=== PATIENT | female | born 1955 | race Caucasian/White ===

== ENCOUNTER 2016-11-21 23:03 | Observation (INO) | payer BC ==
[~2016-11-21] VITALS: Ht 157.5 cm; Wt 92.6 kg
[~2016-11-21 23:03] MED LIST: ACTONEL 35MG TA35 MG PO; ACTONEL150 MG PO; AMOXICILLIN 8751 TAB PO; BISOPROLOL10 MG PO; BONIVA150 MG PO; CEPHALEXIN500 M1 PO; CIPRO 500MG TA500 MG PO; DULCOLAX TAB5 MG PO; FLOMAX 0.40.4 MG/CAP PO; MAALOX EXTRA S150 ML PO; NASONEX SPRAY; NORCO 325 MG-51 TAB PO; PERCOCET 5/321 UDTAB PO; PRIL40 PO; TYLENOL 325MG325 MG PO; ZEBETA 5MG5 MG PO; ZOFRAN 4MG T4 MG/TAB PO
[2016-11-21 23:32] LABS: BASO # 0.1 (0.0-0.2); BASO % 0.6 % (0.0-2.0); EOS # 0.2 (0.0-0.7); EOS % 2.5 % (0-4.0); GRAN # 4.6 (1.4-6.5); GRAN % 58.2 % (42.2-75.2); HEMATOCRIT 38.8 % (37.0-47.0); LYMPH # 2.2 (1.2-3.4); LYMPH % 27.8 % (20.0-51.0); MEAN CELL VOLUME 85 fl (80.0-100.0); MEAN CORPUSCULAR HEMOGLOBIN 28 pg (27.0-31.0); MEAN CORPUSCULAR HGB CONC 34 g/dl (33.0-37.0); MEAN PLATELET VOLUME 10.7 fl (7.4-10.4); MONO # 0.9 (0.1-0.6); MONO % 10.8 % (1.7-9.3); PLATELET COUNT 235 K/mm3 (130-400); RED BLOOD COUNT 4.58 M/mm3 (4.10-5.30); REDCELL DISTRIBUTION WIDTH-CV 12.1 % (11.5-14.5); WHITE BLOOD COUNT 7.9 K/mm3 (4.8-10.8)
[2016-11-21 23:40] LABS: ADJUSTED CALCIUM 9.3 mg/dL (8.4-10.2); ALANINE AMINOTRANSFERASE 30 U/L (9-52); ALBUMIN 3.9 gm/dL (3.5-5.0); ALKALINE PHOSPHATASE 76 U/L (50-136); ANION GAP 10 mmol/L (7-16); BILIRUBIN,TOTAL 0.4 mg/dL (0.0-1.0); BLOOD UREA NITROGEN 21 mg/dL (7-17); CALCIUM 9.2 mg/dL (8.4-10.2); CARBON DIOXIDE 23 mmol/L (22-30); CHLORIDE 107 mmol/L (98-107); CREATININE, serum 0.88 mg/dL (0.52-1.25); GLUCOSE 106 mg/dL (74-106); LIPASE 175 U/L (23-300); POTASSIUM 3.6 mmol/L (3.4-5.0); SODIUM 140 mmol/L (137-145); TOTAL PROTEIN 6.4 gm/dL (6.4-8.2)
[2016-11-21 23:52] LABS: B-TYPE NATRIURETIC PEPTIDE 459 pg/mL (0-125); TROPONIN-I < 0.012 ng/mL (0.000-0.034)
[2016-11-22] VITALS (9 sets, daily range): BP systolic 123–158; BP diastolic 78–93; PULSE 60–81; TEMP 97.4–97.8
[2016-11-22] MEDS ORDERED: TAMOXIFEN CITRA20 MG PO (01:12)
[2016-11-22] MEDS ORDERED: CALTRATE 600 +1 TAB PO (01:12)
== END 2016-11-22 16:38 | disposition home or self-care (01) ==
LOC: COL.ER 23:03 → MEDICAL 11-22 00:27
PROVIDERS: Emergency Medicine
DX: R07.9 Chest pain, unspecified (principal); I10 Essential (primary) hypertension; I49.5 Sick sinus syndrome; I25.10 Atherosclerotic heart disease of native coronary artery without angina pectoris; Z95.0 Presence of cardiac pacemaker; Z90.49 Acquired absence of other specified parts of digestive tract; Z85.3 Personal history of malignant neoplasm of breast; Z82.49 Family history of ischemic heart disease and other diseases of the circulatory system; Z80.49 Family history of malignant neoplasm of other genital organs
CPT/HCPCS: A9502; G0378; J1650; J2785; J7030

== ENCOUNTER → 2017-01-22 | Outpatient (CLI) | payer BC ==
[~2017-01-22] MED LIST changes: +CALTRATE 600 +1 TAB PO; +TAMOXIFEN CITRA20 MG PO
== END ==
LOC: COL.RAD 13:52
DX: M41.84 Other forms of scoliosis, thoracic region (principal); S22.000A Wedge compression fracture of unspecified thoracic vertebra, initial encounter for closed fracture

== ENCOUNTER 2018-05-12 08:51 | Outpatient (CLI) | payer MEDICARE ==
[2006-06-03 21:57] VITALS: BP 136/98
[2018-05-12] VITALS (8 sets, daily range): BP systolic 112–142; BP diastolic 74–98; PULSE 60–87; TEMP 96.9
[~2018-05-12] VITALS: Ht 157.5 cm; Wt 93.4 kg
[~2018-05-12 08:51] MED LIST changes: +HCTZ12.5TAB PO
--- NOTE | 2018-05-12 10:30 | NUR ---
Pt to [facility] per cart s/p myelogram. Pt resting well.
--- NOTE | 2018-05-12 12:00 | NUR ---
Pt has ambulated, voided and enrique PO intake s n/v.
--- NOTE | 2018-05-12 12:40 | NUR ---
Pt discharged per w/c by nurse with .
== END 2018-05-12 17:25 | disposition home or self-care (01) ==
LOC: COL.RAD 08:51
DX: M47.816 Spondylosis without myelopathy or radiculopathy, lumbar region (principal); K63.89 Other specified diseases of intestine
CPT/HCPCS: Q9965

== ENCOUNTER → 2020-02-23 | Outpatient (CLI) | payer MEDICARE | LOC: MC.RAD 14:15 | DX: Z12.31 Encounter for screening mammogram for malignant neoplasm of breast (principal); Z85.3 Personal history of malignant neoplasm of breast ==

== ENCOUNTER 2020-12-07 19:34 | Emergency (ER) | payer MEDICARE ==
[~2020-12-07] VITALS: Ht 157.5 cm; Wt 85.9 kg
[2020-12-07 22:57] LABS: BASO # 0.1 (0.0-0.2); EOS # 0.4 (0.0-0.7); EOS % 5.2 % (0-4.0); GRAN # 3.6 (1.4-6.5); GRAN % 53.6 % (42.2-75.2); HEMATOCRIT 43.7 % (37.0-47.0); LYMPH # 1.9 (1.2-3.4); LYMPH % 28.7 % (20.0-51.0); MEAN CELL VOLUME 85 fl (80.0-100.0); MEAN CORPUSCULAR HEMOGLOBIN 27 pg (27.0-31.0); MEAN CORPUSCULAR HGB CONC 32 g/dl (33.0-37.0); MEAN PLATELET VOLUME 10.9 fl (7.4-10.4); MONO # 0.8 (0.1-0.6); MONO % 11.2 % (1.7-9.3); PLATELET COUNT 289 K/mm3 (130-400); RED BLOOD COUNT 5.12 M/mm3 (4.10-5.30); REDCELL DISTRIBUTION WIDTH-CV 12.6 % (11.5-14.5)
[2020-12-07 23:11] LABS: ALBUMIN 4.2 gm/dL (3.5-5.0); BILIRUBIN,TOTAL 0.5 mg/dL (0.0-1.0); CALCIUM 9.7 mg/dL (8.4-10.2); CREATININE, serum 0.75 (0.52-1.25); POTASSIUM 3.4 mmol/L (3.4-5.0); TOTAL PROTEIN 6.9 gm/dL (6.4-8.2)
[2020-12-08 02:46] VITALS: BP 117/74; PULSE 66; TEMP 98.6
== END 2020-12-08 02:46 | disposition home or self-care (01) ==
LOC: COL.ER 19:34
PROVIDERS: Emergency Medicine
DX: R20.2 Paresthesia of skin (principal)

== ENCOUNTER 2020-12-08 10:17 | Emergency (ER) | payer MEDICARE ==
[~2020-12-08] VITALS: Ht 157.5 cm; Wt 81.8 kg
[2020-12-08 11:00] VITALS: TEMP 97.8
[2020-12-08 11:46] LABS: BASO % 0.8 % (0.0-2.0); EOS # 0.3 (0.0-0.7); EOS % 6.7 % (0-4.0); GRAN # 2.6 (1.4-6.5); HEMATOCRIT 42.2 % (37.0-47.0); HEMOGLOBIN 13.9 g/dl (12.5-16.0); LYMPH # 1.3 (1.2-3.4); LYMPH % 26.6 % (20.0-51.0); MEAN CELL VOLUME 85 fl (80.0-100.0); MEAN CORPUSCULAR HEMOGLOBIN 28 pg (27.0-31.0); MEAN CORPUSCULAR HGB CONC 33 g/dl (33.0-37.0); MEAN PLATELET VOLUME 11.3 fl (7.4-10.4); MONO # 0.6 (0.1-0.6); MONO % 11.7 % (1.7-9.3); PLATELET COUNT 264 K/mm3 (130-400); RED BLOOD COUNT 4.99 M/mm3 (4.10-5.30); REDCELL DISTRIBUTION WIDTH-CV 12.6 % (11.5-14.5)
[2020-12-08 11:51] LABS: ALANINE AMINOTRANSFERASE 18 U/L (4-34); ALKALINE PHOSPHATASE 81 U/L (50-136); ANION GAP 8 mmol/L (7-16); AST,SGOT 31 U/L (15-37); BILIRUBIN,TOTAL 0.5 mg/dL (0.0-1.0); BLOOD UREA NITROGEN 22 mg/dL (7-17); CALCIUM 9.5 mg/dL (8.4-10.2); CARBON DIOXIDE 28 mmol/L (22-30); CHLORIDE 103 mmol/L (98-107); CREATININE, serum 0.73 (0.52-1.25); GLUCOSE 101 mg/dL (74-106); POTASSIUM 3.5 mmol/L (3.4-5.0); SODIUM 138 mmol/L (137-145); TOTAL PROTEIN 6.8 gm/dL (6.4-8.2)
[2020-12-08 12:08] LABS: TROPONIN-I < 0.012 ng/mL (0.000-0.035)
[2020-12-08 12:23] LABS: INR 1.4 (0.8-3.0); PROTHROMBIN TIME 15.4 SECONDS (9.7-12.8)
[2020-12-08 14:45] VITALS: BP 109/71; PULSE 64
== END 2020-12-08 14:45 | disposition home or self-care (01) ==
LOC: COL.ER 10:17
PROVIDERS: Emergency Medicine
DX: R20.2 Paresthesia of skin (principal); I48.91 Unspecified atrial fibrillation; Z79.01 Long term (current) use of anticoagulants; Z95.0 Presence of cardiac pacemaker
CPT/HCPCS: Q9967

== ENCOUNTER → 2020-12-21 | Outpatient (CLI) | payer MEDICARE | LOC: COL.RAD 13:56 | DX: E04.1 Nontoxic single thyroid nodule (principal) ==

== ENCOUNTER → 2021-04-05 | Outpatient (CLI) | payer MEDICARE | LOC: MC.RAD 10:56 | DX: Z12.31 Encounter for screening mammogram for malignant neoplasm of breast (principal) ==

== ENCOUNTER → 2022-01-11 | Outpatient (CLI) | payer MEDICARE | LOC: MHCPAIN 13:58 | DX: M75.02 Adhesive capsulitis of left shoulder (principal); M54.12 Radiculopathy, cervical region; M54.2 Cervicalgia; M50.30 Other cervical disc degeneration, unspecified cervical region; I48.91 Unspecified atrial fibrillation | CPT/HCPCS: G0463 ==

== ENCOUNTER 2022-04-03 16:22 | Outpatient (RCR) | payer SELFPAY | END 2022-04-04 | LOC: WSPT | DX: M25.512 Pain in left shoulder (principal) ==

== ENCOUNTER → 2022-07-27 | Outpatient (CLI) | payer MEDICARE | LOC: COL.RAD 07:08 | DX: J47.9 Bronchiectasis, uncomplicated (principal) | CPT/HCPCS: Q9967 ==

== ENCOUNTER → 2023-02-28 | Outpatient (CLI) | payer MEDICARE | LOC: COL.RAD 13:45 | DX: I51.7 Cardiomegaly (principal); R05.1 Acute cough | CPT/HCPCS: Q9967 ==

== ENCOUNTER → 2023-05-29 | Outpatient (CLI) | payer MEDICARE ==
[2005-02-12 09:36] VITALS: BP 136/98; PULSE 62; TEMP 97.6
== END ==
LOC: MC.RAD 13:55
DX: Z12.31 Encounter for screening mammogram for malignant neoplasm of breast (principal)